=== PATIENT | male | born 1985 | race Caucasian/White ===

== ENCOUNTER 2018-12-25 22:10 | Emergency (ER) | payer BC ==
[2018-12-25] MEDS ORDERED: ONDANSETRON 4 MG/2 ML VIAL IVP STA (22:37)
[2018-12-25] MEDS ORDERED: ACETAMINOPHEN TAB 500 MG TAB PO STA (22:37)
[2018-12-25] MEDS ORDERED: KETOROLAC 30 MG/ML 1 ML VIAL IVP STA (22:37)
--- NOTE | 2018-12-25 22:41 | ED ---
Nausea/Vomiting/Diarrhea HPI - General Chief complaint: Nausea/Vomiting/Diarrhea Stated complaint: NVD, Fever, headache Time Seen by Provider: 12/25/18 22:26 Source: patient Mode of arrival: ambulatory Limitations: no limitations - History of Present Illness Initial comments: 33-year-old male patient with past medical history significant for diverticulit is with subsequent colon resection and bowel obstruction presents to the emergency department today for evaluation of nausea, vomiting, diarrhea, and abdominal pain. Patient states he has been vomiting since onto p.m. this afternoon. States he has had 4-5 episodes of nonbilious emesis, he is having streaking of blood in some episodes. Patient is also reported several watery bowel movements, no hematochezia, no melena. Patient states he has had low- grade fever at home. Denies any recent travel. He states they did recently have a house forming green party and a few family members present were sick with similar symptoms. Denies any new medications. Denies any urinary symptoms. Patient denies any recent rash, shortness breath, chest pain, back pain, numbness, tingling, dizziness, weakness, hematuria, dysuria, urinary urgency, urinary frequency, headache, visual changes, or any other complaints. - Related Data Home Medications Medication Instructions Recorded Confirmed Albuterol Sulfate [Proair Hfa] 2 puff INHALATION RT-Q6H PRN 12/25/18 12/25/18 Ascorbic Acid [Vitamin C] 500 mg PO DAILY 12/25/18 12/25/18 Cinnamon Bark [Cinnamon] 500 mg PO DAILY 12/25/18 12/25/18 Metoprolol Succinate (ER) [Toprol 25 mg PO DAILY 12/25/18 12/25/18 Xl] Multivitamins, Thera [Multivitamin 1 tab PO DAILY 12/25/18 12/25/18 (formulary)] [place]-3/Dha/Epa/Fish Oil [Fish Oil 1 cap PO DAILY 12/25/18 12/25/18 500 mg Softgel] Psyllium Husk 100% [Metamucil 6 gm PO DAILY 12/25/18 12/25/18 Packet] Vitamin E 1,000 unit PO DAILY 12/25/18 12/25/18 clonazePAM [KlonoPIN] 1.5 mg PO HS 12/25/18 12/25/18 Previous Rx's Medication Instructions Recorded Dicyclomine [Bentyl] 20 mg PO QID #12 tablet 12/26/18 Ondansetron [Zofran ODT] 4 mg PO Q8HR PRN #15 tab 12/26/18 Allergies Allergy/AdvReac Type Severity Reaction Status Date / Time codeine Allergy Rash/Hives Verified 12/25/18 23:18 Review of Systems ROS Statement: Those systems with pertinent positive or pertinent negative responses have been documented in the HPI. ROS Other: All systems not noted in ROS Statement are negative. Past Medical History Past Medical History: Asthma, Diabetes Mellitus, Hypertension Additional Past Medical History / Comment(s): diverticulitis History of Any Multi-Drug Resistant Organisms: None Reported Past Surgical History: Bowel Resection Past Psychological History: Anxiety, PTSD Smoking Status: Never smoker Past Alcohol Use History: Occasional Past Drug Use History: None Reported General Exam Limitations: no limitations General appearance: alert, in no apparent distress, other (Physical well- developed, well-nourished adult male patient in no acute distress. Vital signs upon presentation are temperature 100.0F, pulse 109, respirations 16, blood pressure 128/82, pulse ox 94% on room air.) ENT exam: Present: normal exam, normal oropharynx, mucous membranes moist Respiratory exam: Present: normal lung sounds bilaterally. Absent: respiratory distress, wheezes, rales, rhonchi, stridor Cardiovascular Exam: Present: normal rhythm, tachycardia, normal heart sounds. Absent: systolic murmur, diastolic murmur, rubs, gallop, clicks GI/Abdominal exam: Present: soft, tenderness (Left lower quadrant tenderness), normal bowel sounds. Absent: distended, guarding, rebound, rigid Neurological exam: Present: alert, oriented X3, CN II-XII intact Psychiatric exam: Present: normal affect, normal mood Skin exam: Present: warm, dry, intact, normal color. Absent: rash Course Vital Signs 12/25/18 12/25/18 22:24 23:58 Temperature 100 F H 100.0 F H Pulse Rate 109 H 91 Respiratory 16 18 Rate Blood Pressure 128/82 125/76 O2 Sat by Pulse 94 L 95 Oximetry Medical Decision Making - Medical Decision Making 33-year-old male patient presented to the emergency department today for evaluation of vomiting and diarrhea. Physical examination did reveal mild left lower quadrant tenderness. Labs reviewed and did reveal white blood cell count at 11.6. X-ray was obtained and showed no acute abnormalities. Upon reevaluation patient does report improvement of symptoms after receiving IV nausea medication and fluids. Vital signs did improve. Patient does report several family members sick with similar symptoms. Symptoms are consistent with a viral gastroenteritis. Given patient's history of diverticulitis and did offer CT scanning, patient reports that symptoms are not similar to his previous bouts of diverticulitis and he declined scan at this time. We discharged home with Capo and Alisson. He is instructed to start with a clear liquid diet and advance as tolerated. He is instructed to follow-up with his primary care physician for recheck in 1-2 days. Return parameters were discussed in detail. He verbalizes understanding and agrees with this plan. - Lab Data Result diagrams: 12/25/18 22:46 12/25/18 22:46 Lab Results 12/25/18 12/25/18 12/25/18 Range/Units 22:46 22:46 22:46 WBC 11.6 H (3.8-10.6) k/uL RBC 5.10 (4.30-5.90) m/uL Hgb 15.5 (13.0-17.5) gm/dL Hct 42.6 (39.0-53.0) % MCV 83.5 (80.0-100.0) fL MCH 30.4 (25.0-35.0) pg MCHC 36.4 (31.0-37.0) g/dL RDW 12.9 (11.5-15.5) % Plt Count 234 (150-450) k/uL Neutrophils % 89 % Lymphocytes % 5 % Monocytes % 4 % Eosinophils % 2 % Basophils % 1 % Neutrophils # 10.3 H (1.3-7.7) k/uL Lymphocytes # 0.6 L (1.0-4.8) k/uL Monocytes # 0.4 (0-1.0) k/uL Eosinophils # 0.2 (0-0.7) k/uL Basophils # 0.1 (0-0.2) k/uL PT (9.0-12.0) sec INR (<1.2) APTT (22.0-30.0) sec Sodium 138 (137-145) mmol/L Potassium 4.3 (3.5-5.1) mmol/L Chloride 100 (98-107) mmol/L Carbon Dioxide 24 (22-30) mmol/L Anion Gap 14 mmol/L BUN 12 (9-20) mg/dL Creatinine 0.78 (0.66-1.25) mg/dL Est GFR (CKD-EPI)AfAm >90 (>60 ml/min/1.73 sqM) Est GFR (CKD-EPI)NonAf >90 (>60 ml/min/1.73 sqM) Glucose 187 H (74-99) mg/dL Plasma Lactic Acid Jamir 2.8 H* (0.7-2.0) mmol/L Calcium 10.1 (8.4-10.2) mg/dL Total Bilirubin 0.7 (0.2-1.3) mg/dL AST 25 (17-59) U/L ALT 38 (21-72) U/L Alkaline Phosphatase 73 (38-126) U/L Total Protein 7.9 (6.3-8.2) g/dL Albumin 4.8 (3.5-5.0) g/dL Amylase 44 (30-110) U/L Lipase 103 (23-300) U/L Urine Color Urine Appearance (Clear) Urine pH (5.0-8.0) Ur Specific Brilliant (1.001-1.035) Urine Protein (Negative) Urine Glucose (UA) (Negative) Urine Ketones (Negative) Urine Blood (Negative) Urine Nitrite (Negative) Urine Bilirubin (Negative) Urine Urobilinogen (<2.0) mg/dL Ur Leukocyte Esterase (Negative) Urine RBC (0-5) /hpf Urine WBC (0-5) /hpf Hyaline Casts (0-2) /lpf Urine Mucus (None) /hpf 12/25/18 12/25/18 Range/Units 22:46 23:00 WBC (3.8-10.6) k/uL RBC (4.30-5.90) m/uL Hgb (13.0-17.5) gm/dL Hct (39.0-53.0) % MCV (80.0-100.0) fL MCH (25.0-35.0) pg MCHC (31.0-37.0) g/dL RDW (11.5-15.5) % Plt Count (150-450) k/uL Neutrophils % % Lymphocytes % % Monocytes % % Eosinophils % % Basophils % % Neutrophils # (1.3-7.7) k/uL Lymphocytes # (1.0-4.8) k/uL Monocytes # (0-1.0) k/uL Eosinophils # (0-0.7) k/uL Basophils # (0-0.2) k/uL PT 10.1 (9.0-12.0) sec INR 0.9 (<1.2) APTT 23.1 (22.0-30.0) sec Sodium (137-145) mmol/L Potassium (3.5-5.1) mmol/L Chloride (98-107) mmol/L Carbon Dioxide (22-30) mmol/L Anion Gap mmol/L BUN (9-20) mg/dL Creatinine (0.66-1.25) mg/dL Est GFR (CKD-EPI)AfAm (>60 ml/min/1.73 sqM) Est GFR (CKD-EPI)NonAf (>60 ml/min/1.73 sqM) Glucose (74-99) mg/dL Plasma Lactic Acid Jamir (0.7-2.0) mmol/L Calcium (8.4-10.2) mg/dL Total Bilirubin (0.2-1.3) mg/dL AST (17-59) U/L ALT (21-72) U/L Alkaline Phosphatase (38-126) U/L Total Protein (6.3-8.2) g/dL Albumin (3.5-5.0) g/dL Amylase (30-110) U/L Lipase (23-300) U/L Urine Color Yellow Urine Appearance Clear (Clear) Urine pH 8.0 (5.0-8.0) Ur Specific Brilliant 1.024 (1.001-1.035) Urine Protein 1+ H (Negative) Urine Glucose (UA) Negative (Negative) Urine Ketones Negative (Negative) Urine Blood Negative (Negative) Urine Nitrite Negative (Negative) Urine Bilirubin Negative (Negative) Urine Urobilinogen <2.0 (<2.0) mg/dL Ur Leukocyte Esterase Negative (Negative) Urine RBC <1 (0-5) /hpf Urine WBC 1 (0-5) /hpf Hyaline Casts 18 H (0-2) /lpf Urine Mucus Rare H (None) /hpf - Radiology Data Radiology results: report reviewed, image reviewed 2 views of the abdomen are obtained. Report was reviewed in its entirety. Impression by Dr. Peace shows nonacute abdomen Disposition Clinical Impression: Vomiting, Abdominal pain Disposition: HOME SELF-CARE Condition: Good Instructions (If sedation given, give patient instructions): Acute Nausea and Vomiting (ED), Acute Diarrhea (ED), Abdominal Pain (ED) Additional Instructions: Take medications as directed. Start with clear liquid diet and advance as tolerated. Follow-up with your primary care physician for recheck in 1-2 days. Return to the emergency department immediately for any new, worsening, or concerning symptoms. Your prescriptions have been sent to [facility] on . Prescriptions: Dicyclomine [Bentyl] 20 mg PO QID #12 tablet Ondansetron [Zofran ODT] 4 mg PO Q8HR PRN #15 tab PRN Reason: Nausea Is patient prescribed a controlled substance at d/c from ED?: No Referrals: Nonstaff,Physician [REFERRING] - 1-2 days Time of Disposition: 00:04
[2018-12-25] MEDS: SODIUM CHLORIDE 0.9% 500 ML 500 ML IV SCH ×2 (22:55→22:56)
[2018-12-25 23:00] LABS: Basophils # (A) 0.1 k/uL (0-0.2); Basophils % (A) 1 %; Eosinophils # (A) 0.2 k/uL (0-0.7); Eosinophils % (A) 2 %; HCT 42.6 % (39.0-53.0); HGB 15.5 gm/dL (13.0-17.5); Lymphocytes # (A) 0.6 k/uL (1.0-4.8); Lymphocytes % (A) 5 %; MCH 30.4 pg (25.0-35.0); MCHC 36.4 g/dL (31.0-37.0); MCV 83.5 fL (80.0-100.0); Mean Platelet Volume 6.5; Monocytes # (A) 0.4 k/uL (0-1.0); Monocytes % (A) 4 %; Neutrophils # (A) 10.3 k/uL (1.3-7.7); Neutrophils % (A) 89 %; Platelet Count 234 k/uL (150-450); RDW 12.9 % (11.5-15.5); WBC 11.6 k/uL (3.8-10.6)
[2018-12-25 23:08] LABS: INR 0.9 (<1.2); Partial Thromboplastin Time 23.1 sec (22.0-30.0); Prothrombin Time 10.1 sec (9.0-12.0)
[2018-12-25 23:09] LABS: ALT 38 U/L (21-72); AST 25 U/L (17-59); African American GFR (CKD) >90 (>60 ml/min/1.73 sqM); Albumin 4.8 g/dL (3.5-5.0); Alkaline Phosphatase 73 U/L (38-126); Amylase 44 U/L (30-110); Anion Gap 14 mmol/L; Blood Urea Nitrogen 12 mg/dL (9-20); Calcium 10.1 mg/dL (8.4-10.2); Carbon Dioxide 24 mmol/L (22-30); Chloride 100 mmol/L (98-107); Glucose 187 mg/dL (74-99); Potassium 4.3 mmol/L (3.5-5.1); Sodium 138 mmol/L (137-145); Total Bilirubin 0.7 mg/dL (0.2-1.3); Total Protein 7.9 g/dL (6.3-8.2)
[2018-12-25 23:13] LABS: Appearance,Urine Clear (Clear); Bilirubin,Urine Negative (Negative); Blood,Urine Negative (Negative); Color,Urine Yellow; Glucose,Urine (UA) Negative (Negative); Hyaline Casts,Urine 18 /lpf (0-2); Ketones,Urine Negative (Negative); Leukocyte Esterase,Urine Negative (Negative); Mucus,Urine Rare /hpf; Nitrite,Urine Negative (Negative); Protein,Urine 1+ (Negative); RBC,Urine <1 /hpf (0-5); Specific Gravity,Urine 1.024 (1.001-1.035); Urobilinogen,Urine <2.0 mg/dL (<2.0); WBC,Urine 1 /hpf (0-5)
--- NOTE | 2018-12-25 23:25 | XR ---
EXAMINATION TYPE: XR KUB DATE OF EXAM: 12/25/2018 COMPARISON: NONE HISTORY: Pain TECHNIQUE: 2 views upright FINDINGS: Bowel gas pattern is normal. There is no sign of intestinal obstruction or pneumoperitoneum . Fecal pattern is normal. There is no sign of a mass. There are no pathologic calcifications over the kidneys. Lung bases appear clear. IMPRESSION: Nonacute abdomen.
[2018-12-26] VITALS: BP 125/76; PULSE 91; RESP 18; TEMP 100
== END 2018-12-26 00:20 | disposition home or self-care (01) ==
LOC: EC 22:10
DX: R10.9 Unspecified abdominal pain (principal); R11.10 Vomiting, unspecified; R19.7 Diarrhea, unspecified; R50.9 Fever, unspecified; J45.909 Unspecified asthma, uncomplicated; I10 Essential (primary) hypertension; F41.9 Anxiety disorder, unspecified; Z79.899 Other long term (current) drug therapy; Z88.5 Allergy status to narcotic agent
CPT/HCPCS: 99284; 96374; 96375; 96361; 36415; 80053; 82150; 83605; 83690; 85025; 85610; 85730; 81001; 87040; 74018; J2405; J1885

== ENCOUNTER 2023-03-18 13:39 | Emergency (ER) | payer BC ==
[2023-03-18 14:01] VITALS: RESP 18
[2023-03-18] MEDS ORDERED: SODIUM CHLORIDE 0.9% 2,000 ML IV STA (15:31)
--- NOTE | 2023-03-18 15:39 | ED ---
General Adult HPI - General Chief complaint: Nausea/Vomiting/Diarrhea Stated complaint: diarrhea,vomiting,shoulder pain Time Seen by Provider: 03/18/23 15:07 Source: patient, RN notes reviewed Mode of arrival: ambulatory Limitations: no limitations - History of Present Illness Initial comments: 37-year-old male presents to the emergency department with chief complaint of lower abdominal discomfort and diarrhea 3 weeks. Patient reports pain in the lower bilateral abdomen without radiation. He states that the pain is worse when he eats. His reports that he has been attempting a brat diet without relief. Patient has a history of diverticulitis with perforation and left hemicolectomy multiple years ago. He does admit to nausea and dry heaves w ithout vomiting. Admits to chills. Denies melena, hematochezia. - Related Data Home Medications Medication Instructions Recorded Confirmed Albuterol Sulfate [Proair Hfa] 2 puff INHALATION RT-Q6H PRN 12/25/18 12/25/18 Ascorbic Acid [Vitamin C] 500 mg PO DAILY 12/25/18 12/25/18 Cinnamon Bark [Cinnamon] 500 mg PO DAILY 12/25/18 12/25/18 Metoprolol Succinate (ER) [Toprol 25 mg PO DAILY 12/25/18 12/25/18 Xl] Multivitamins, Thera [Multivitamin 1 tab PO DAILY 12/25/18 12/25/18 (formulary)] [place]-3/Dha/Epa/Fish Oil [Fish Oil 1 cap PO DAILY 12/25/18 12/25/18 500 mg Softgel] Psyllium Husk 100% [Metamucil 6 gm PO DAILY 12/25/18 12/25/18 Packet] Vitamin E (Dl,Tocopheryl Acet) 1,000 unit PO DAILY 12/25/18 12/25/18 [Vitamin E] clonazePAM [KlonoPIN] 1.5 mg PO HS 12/25/18 12/25/18 Previous Rx's Medication Instructions Recorded Dicyclomine [Bentyl] 20 mg PO QID #12 tablet 12/26/18 Ondansetron [Zofran ODT] 4 mg PO Q8HR PRN #15 tab 12/26/18 Allergies Allergy/AdvReac Type Severity Reaction Status Date / Time codeine Allergy Rash/Hives Verified 12/25/18 23:18 Review of Systems ROS Statement: Those systems with pertinent positive or pertinent negative responses have been documented in the HPI. ROS Other: All systems not noted in ROS Statement are negative. Past Medical History Past Medical History: Asthma, Diabetes Mellitus, Hypertension Additional Past Medical History / Comment(s): diverticulitis, bowel perforation s, History of Any Multi-Drug Resistant Organisms: None Reported Past Surgical History: Bowel Resection Past Psychological History: Anxiety, PTSD Smoking Status: Former smoker Past Alcohol Use History: Rare Past Drug Use History: None Reported General Exam Limitations: no limitations General appearance: alert, in no apparent distress Head exam: Present: atraumatic, normocephalic, normal inspection Eye exam: Present: normal appearance, PERRL, EOMI. Absent: scleral icterus, conjunctival injection, periorbital swelling ENT exam: Present: normal exam, mucous membranes moist Neck exam: Present: normal inspection. Absent: tenderness, meningismus, lymphadenopathy Respiratory exam: Present: normal lung sounds bilaterally. Absent: respiratory distress, wheezes, rales, rhonchi, stridor Cardiovascular Exam: Present: regular rate, normal rhythm, normal heart sounds. Absent: systolic murmur, diastolic murmur, rubs, gallop, clicks GI/Abdominal exam: Present: soft, tenderness (Lower abdomen bilaterally), normal bowel sounds. Absent: distended, guarding, rebound, rigid Extremities exam: Present: normal inspection, full ROM, normal capillary refill. Absent: tenderness, pedal edema, joint swelling, calf tenderness Back exam: Present: normal inspection Neurological exam: Present: alert, oriented X3 Psychiatric exam: Present: normal affect, normal mood Skin exam: Present: warm, dry, intact, normal color. Absent: rash Course Vital Signs 03/18/23 03/18/23 03/18/23 13:48 16:00 17:05 Temperature 99.9 F H 101.1 F H 101.4 F H Pulse Rate 95 Respiratory 18 Rate Blood Pressure 131/83 O2 Sat by Pulse 97 Oximetry 03/18/23 03/18/23 18:39 20:07 Temperature 100.0 F H Pulse Rate 71 Respiratory 18 Rate Blood Pressure 110/69 O2 Sat by Pulse 96 Oximetry Medical Decision Making - Medical Decision Making Was pt. sent in by a medical professional or institution (, PA, PIERCING ARTIST, urgent care, hospital, or halfway...) When possible be specific @ -No Did you speak to anyone other than the patient for history (EMS, parent, family, police, friend...)? What history was obtained from this source @ -No Did you review nursing and triage notes (agree or disagree)? Why? @ -I reviewed and agree with nursing and triage notes Were old charts reviewed (outside hosp., previous admission, EMS record, old EKG, old radiological studies, urgent care reports/EKG's, halfway records)? Report findings @ -No old charts were reviewed Differential Diagnosis (chest pain, altered mental status, abdominal pain women, abdominal pain men, vaginal bleeding, weakness, fever, dyspnea, syncope, headache, dizziness, GI bleed, back pain, seizure, CVA, palpatations, mental health, musculoskeletal)? @ -Gastroenteritis, diverticulitis, bowel obstruction, this list is not all- inclusive EKG interpreted by me (3pts min.). @ -EKG at 1614 shows sinus rhythm rate 92, HI 168, QRS 111, QTQTc [id number] X-rays interpreted by me (1pt min.). @ -None done CT interpreted by me (1pt min.). @ -CT abdomen and pelvis shows no acute diverticulitis U/S interpreted by me (1pt. min.). @ -None done What testing was considered but not performed or refused? (CT, X-rays, U/S, labs)? Why? @ -None What meds were considered but not given or refused? Why? @ -None Did you discuss the management of the patient with other professionals (professionals i.e. , PA, PIERCING ARTIST, lab, RT, psych nurse, social sciences research scientist, packing line worker, teacher, environmental technical officer, medical case manager)? Give summary @ -No Was smoking cessation discussed for >3mins.? @ -No Was critical care preformed (if so, how long)? @ -No Were there social determinants of health that impacted care today? How? (Homelessness, low income, unemployed, alcoholism, drug addiction, transportation, low edu. Level, literacy, decrease access to med. care, usp, rehab)? @ -No Was there de-escalation of care discussed even if they declined (Discuss DNR or withdrawal of care, Hospice)? DNR status @ -No What co-morbidities impacted this encounter? (DM, HTN, Smoking, COPD, CAD, Cancer, CVA, ARF, Chemo, Hep., AIDS, mental health diagnosis, sleep apnea, morbid obesity)? @ -None Was patient admitted / discharged? Hospital course, mention meds given and route, prescriptions, significant lab abnormalities, going to OR and other pertinent info. @ -Discharged. Patient presented to the emergency department for chief complaint of diarrhea and lower abdominal pain 3 weeks. Patient is found to be febrile in the emergency department today. Laboratory studies obtained. CBC shows WBC within normal limits at 5.8, hemoglobin 17.5; CMP shows sodium 138, potassium 4.0, creatinine 0.71, lactic acid 1.0, C. diff negative, Covid, influenza, RSV negative. Stool sent for culture and active. We'll call with results if positive. CT abdomen and pelvis shows no acute process. Discussed findings with patient. Patient understanding and agreeable with discharge plan. Patient stable at time of discharge. Case discussed with Dr. Horowitz. Undiagnosed new problem with uncertain prognosis? @ -No Drug Therapy requiring intensive monitoring for toxicity (Heparin, Nitro, Insulin, Cardizem)? @ -No Were any procedures done? @ -No Diagnosis/symptom? @ -Diarrhea, abdominal pain Acute, or Chronic, or Acute on Chronic? @ -Acute Uncomplicated (without systemic symptoms) or Complicated (systemic symptoms)? @ -uncomplicated Side effects of treatment? @ -No Exacerbation, Progression, or Severe Exacerbation? @ -No Poses a threat to life or bodily function? How? (Chest pain, USA, HI, pneumonia, PE, COPD, DKA, ARF, appy, cholecystitis, CVA, Diverticulitis, Homicidal, Suicidal, threat to staff... and all critical care pts) @ -No - Lab Data Result diagrams: 03/18/23 15:49 03/18/23 15:49 Lab Results 03/18/23 03/18/23 03/18/23 Range/Units 15:49 15:49 15:49 WBC 5.8 (3.8-10.6) k/uL RBC 5.90 (4.30-5.90) m/uL Hgb 17.5 (13.0-17.5) gm/dL Hct 51.6 (39.0-53.0) % MCV 87.4 (80.0-100.0) fL MCH 29.6 (25.0-35.0) pg MCHC 33.9 (31.0-37.0) g/dL RDW 12.8 (11.5-15.5) % Plt Count 166 (150-450) k/uL MPV 7.9 Neutrophils % (Manual) 76 % Lymphocytes % (Manual) 15 % Monocytes % (Manual) 2 % Eosinophils % (Manual) 7 % Neutrophils # (Manual) 4.41 (1.3-7.7) k/uL Lymphocytes # (Manual) 0.87 L (1.0-4.8) k/uL Monocytes # (Manual) 0.12 (0-1.0) k/uL Eosinophils # (Manual) 0.41 (0-0.7) k/uL Nucleated RBCs 0 (0-0) /100 WBC Manual Slide Review Performed Sodium 138 (137-145) mmol/L Potassium 4.0 (3.5-5.1) mmol/L Chloride 98 (98-107) mmol/L Carbon Dioxide 26 (22-30) mmol/L Anion Gap 14 mmol/L BUN 7 L (9-20) mg/dL Creatinine 0.71 (0.66-1.25) mg/dL Est GFR (CKD-EPI)AfAm >90 (>60 ml/min/1.73 sqM) Est GFR (CKD-EPI)NonAf >90 (>60 ml/min/1.73 sqM) Glucose 122 H (74-99) mg/dL Plasma Lactic Acid Jamir 1.0 (0.7-2.0) mmol/L Calcium 9.9 (8.4-10.2) mg/dL Total Bilirubin 0.9 (0.2-1.3) mg/dL AST 68 H (17-59) U/L ALT 50 H (4-49) U/L Alkaline Phosphatase 76 (38-126) U/L Total Protein 7.8 (6.3-8.2) g/dL Albumin 5.0 (3.5-5.0) g/dL Amylase 53 (30-110) U/L Lipase 114 (23-300) U/L C. difficile (EIA) Intrp (Negative) Influenza Type A (PCR) (Not Detectd) Influenza Type B (PCR) (Not Detectd) RSV (PCR) (Not Detectd) SARS-CoV-2 (PCR) (Not Detectd) 03/18/23 03/18/23 Range/Units 15:49 16:15 WBC (3.8-10.6) k/uL RBC (4.30-5.90) m/uL Hgb (13.0-17.5) gm/dL Hct (39.0-53.0) % MCV (80.0-100.0) fL MCH (25.0-35.0) pg MCHC (31.0-37.0) g/dL RDW (11.5-15.5) % Plt Count (150-450) k/uL MPV Neutrophils % (Manual) % Lymphocytes % (Manual) % Monocytes % (Manual) % Eosinophils % (Manual) % Neutrophils # (Manual) (1.3-7.7) k/uL Lymphocytes # (Manual) (1.0-4.8) k/uL Monocytes # (Manual) (0-1.0) k/uL Eosinophils # (Manual) (0-0.7) k/uL Nucleated RBCs (0-0) /100 WBC Manual Slide Review Sodium (137-145) mmol/L Potassium (3.5-5.1) mmol/L Chloride (98-107) mmol/L Carbon Dioxide (22-30) mmol/L Anion Gap mmol/L BUN (9-20) mg/dL Creatinine (0.66-1.25) mg/dL Est GFR (CKD-EPI)AfAm (>60 ml/min/1.73 sqM) Est GFR (CKD-EPI)NonAf (>60 ml/min/1.73 sqM) Glucose (74-99) mg/dL Plasma Lactic Acid Jamir (0.7-2.0) mmol/L Calcium (8.4-10.2) mg/dL Total Bilirubin (0.2-1.3) mg/dL AST (17-59) U/L ALT (4-49) U/L Alkaline Phosphatase (38-126) U/L Total Protein (6.3-8.2) g/dL Albumin (3.5-5.0) g/dL Amylase (30-110) U/L Lipase (23-300) U/L C. difficile (EIA) Intrp Negative (Negative) Influenza Type A (PCR) Not Detected (Not Detectd) Influenza Type B (PCR) Not Detected (Not Detectd) RSV (PCR) Not Detected (Not Detectd) SARS-CoV-2 (PCR) Not Detected (Not Detectd) Disposition Clinical Impression: Diarrhea, Lower abdominal pain Disposition: HOME SELF-CARE Condition: Stable Instructions (If sedation given, give patient instructions): Acute Diarrhea (ED), Abdominal Pain (ED) Additional Instructions: Please follow up with your primary care provider. Return to the emergency department for new or worsening symptoms. Is patient prescribed a controlled substance at d/c from ED?: No Referrals: Jose Maria Saavedra MD [Primary Care Provider] - 1-2 days
[2023-03-18] MEDS ORDERED: ACETAMINOPHEN TAB 500 MG TAB PO STA (16:05)
[2023-03-18 16:37] LABS: HCT 51.6 % (39.0-53.0); HGB 17.5 gm/dL (13.0-17.5); MCH 29.6 pg (25.0-35.0); MCHC 33.9 g/dL (31.0-37.0); MCV 87.4 fL (80.0-100.0); Mean Platelet Volume 7.9; Platelet Count 166 k/uL (150-450); RDW 12.8 % (11.5-15.5); WBC 5.8 k/uL (3.8-10.6)
[2023-03-18 17:02] LABS: ALT 50 U/L (4-49); AST 68 U/L (17-59); African American GFR (CKD) >90 (>60 ml/min/1.73 sqM); Alkaline Phosphatase 76 U/L (38-126); Amylase 53 U/L (30-110); Anion Gap 14 mmol/L; Blood Urea Nitrogen 7 mg/dL (9-20); Calcium 9.9 mg/dL (8.4-10.2); Carbon Dioxide 26 mmol/L (22-30); Chloride 98 mmol/L (98-107); Glucose 122 mg/dL (74-99); Lipase 114 U/L (23-300); Non-African American GFR(CKD) >90 (>60 ml/min/1.73 sqM); Sodium 138 mmol/L (137-145); Total Bilirubin 0.9 mg/dL (0.2-1.3); Total Protein 7.8 g/dL (6.3-8.2)
[2023-03-18 17:05] LABS: Eosinophils # (M) 0.41 k/uL (0-0.7); Lymphocytes # (M) 0.87 k/uL (1.0-4.8); Monocytes # (M) 0.12 k/uL (0-1.0); Neutrophils # (M) 4.41 k/uL (1.3-7.7); Neutrophils % (M) 76 %; Nucleated Red Blood Cells 0 /100 WBC (0-0); Total Cells Counted 100
[2023-03-18] MEDS ORDERED: IBUPROFEN 600 MG TAB PO STA (17:37)
--- NOTE | 2023-03-18 18:39 | CT ---
EXAMINATION TYPE: CT abdomen pelvis w con DATE OF EXAM: 03/18/2023 COMPARISON: None INDICATION: lower abd pain, fever, hx diverticulitis DLP: 1996.5 mGycm, Automated exposure control for dose reduction was used. CONTRAST: 100 mL of Isovue 300. Study performed without Oral Contrast TECHNIQUE: Axial images were obtained from above the diaphragm to the pubic rami in the axial plane a t 5 mm thick sections. Reconstructed images are reviewed on the computer in the coronal plane. FINDINGS: Limited CT sections are obtained the lung bases. The lung bases are clear. CT ABDOMEN: Liver: Normal Spleen: Normal Pancreas: Normal Adrenal glands: The adrenal glands are normal. Gallbladder: Normal Kidneys: No masses are evident. No hydronephrosis is present. No cysts are present. Delayed images were obtained through the kidneys, which remain unremarkable. Aorta: Vascular calcification is within the aorta. Inferior vena cava: Normal. CT PELVIS: Loops of bowel within the abdomen and pelvis are normal. There are scattered diverticuli present. The anastomosis appears nonobstructive at the sigmoid colon. No suspicious dilated loops of bowel ar e evident. Study is without oral contrast limiting bowel evaluation. Appendix: Normal as visualized. Urinary bladder: Normal. Genitourinary structures: Prostate is unremarkable Osseous structures: No suspicious lytic or sclerotic lesions. IMPRESSION: 1. No suspicious acute diverticulitis. 2. No suspicious abnormality account for lower abdominal pain
[2023-03-18 18:46] VITALS: TEMP 100
--- NOTE | 2023-03-18 19:39 | XR ---
EXAMINATION TYPE: XR shoulder complete RT DATE OF EXAM: 03/18/2023 7:07 PM CLINICAL INDICATION:Male, 37 years old with history of pain; [facility] COMPARISON: TECHNIQUE: XR shoulder complete RT; shoulder was examined in AP, internally rotated and scapular Y p rojections. FINDINGS: No evidence of acute osseous pathology, joint dislocation, or soft tissue swelling. Mild degenerative change of the AC joint. The remaining portions of the visualized chest are unremarkable. IMPRESSION: No acute osseous pathology.
[2023-03-18 20:17] VITALS: BP 110/69; PULSE 71
== END 2023-03-18 20:09 | disposition home or self-care (01) ==
LOC: EC 13:39
DX: R19.7 Diarrhea, unspecified (principal); R10.30 Lower abdominal pain, unspecified; J45.909 Unspecified asthma, uncomplicated; E11.9 Type 2 diabetes mellitus without complications; I10 Essential (primary) hypertension; F41.9 Anxiety disorder, unspecified; Z87.891 Personal history of nicotine dependence; Z88.5 Allergy status to narcotic agent; Z79.899 Other long term (current) drug therapy
CPT/HCPCS: 36415; 80053; 82150; 83605; 83690; 85025; 87324; 87045; 83630; 87046; 87636; 73030; 74177; 99285; 96360; Q9967